=== PATIENT | female | born 1965 | race Caucasian/White ===

== ENCOUNTER → 2020-09-03 10:52 | Outpatient (CLI) | payer OTHER, SELFPAY ==
--- NOTE | ~2020-09-03 | US_ITS ---
EXAMINATION: US pelvic complete w TV DATE: 09/03/2020 11:45 INDICATION: Uterine fibroid Comparison:No prior studies for comparison. TECHNIQUE: Multiple transabdominal and endovaginal sonographic images of the pelvis performed. FINDINGS: The uterus measures 7.6 x 3.8 x 4.7 cm. There are multiple uterine fibroids, largest locate d near the cervix measuring 4.3 x 3 x 4.1 cm The endometrial complex measures 7 mm. The ovaries are not visualized. There is no free fluid in the pelvis. There are no abnormal masses seen on either side. IMPRESSION: 1. Multiple uterine fibroids, largest measuring up to 4.3 cm. Reviewed, dictated and finalized at location A. K CLEANER
== END ==
PROVIDERS: Visit Provider Nurse Practitioner
DX: D25.9 Leiomyoma of uterus, unspecified (principal)
CPT/HCPCS: 76830; 76856

== ENCOUNTER → 2020-10-22 17:48 | Outpatient (CLI) | payer OTHER, SELFPAY ==
--- NOTE | ~2020-10-22 | DEXA_ITS ---
Bone Density Report Name: Winifred Solo Age: 55 Sex: Female Ethnicity: White Date of : 1965 Indication: postmenopausal; screening for osteoporosis; Referring Provider: Emily, Claudia Study: Bone densitometry was performed. Exam Date: October 22, 2020 Accession number: [id number] Bone Density: Region BMD T-score Z-score Classification AP Spine (L1-L4) 1.034 -0.1 1.1 Normal Femoral Neck (Left) 0.706 -1.3 -0.2 Osteopenia Total Hip (Left) 0.856 -0.7 0.1 Normal Femoral Neck (Right) 0.725 -1.1 0.0 Osteopenia Total Hip (Right) 0.866 -0.6 0.1 Normal Total Hip Mean 0.861 -0.7 0.1 Normal World Health Organization criteria for BMD impression classify patients as: Normal (T-score at or above -1.0), Osteopenia (T-score between -1.0 and -2.5), or Osteoporosis (T-score at or below -2.5). 10-year Fracture Risk: FRAX not reported because: Treated for osteoporosis Clinical Information Provided by Patient: Is being treated for osteoporosis Has used the following medications: HRT (i.e. estrogen/hormone therapy), Vitamin D, LEVOTHYROXINE Patient maximum height was 63.5 Menopause Age: 52 Drinks caffeinated beverages Onset of menses at age 13 Number of children 2 Impression: The patient has low bone mass, based on the Left Femoral Neck T-score. Discussion: It is important to ask patients whether they are taking their medications and to encourage continued and appropriate compliance with their osteoporosis therapies to reduce fracture risk. It is also important to review their risk factors and encourage appropriate calcium and vitamin D intakes, exercise, fall prevention and other lifestyle measures. Follow-Up: Consider a repeat BMD and Vertebral Fracture Assessment (VFA) exam in 2 years or sooner if medically necessary, to reassess this patient's status. Reported by: DEBRA on 10/22/2020 6:34:00 PM. Reviewed, dictated and finalized at location AJannet ELE
--- NOTE | ~2020-10-22 | MM_ITS ---
EXAMINATION: MM screening [facility]min BI w ashley HISTORY: Screening mammogram TECHNIQUE: Craniocaudal and mediolateral oblique 3-D tomosynthesis images were obtained and synthetic 2-D images were generated. CAD analysis was submitted and interpreted. COMPARISON: 09/26/2019, 09/06/2018, 08/24/2017 bilateral digital screening mammogram examinations BREAST PARENCHYMAL COMPOSITION: There are scattered areas of fibroglandular density. FINDINGS: There is no evidence of suspicious mass, calcification, or architectural distortion to sugg est malignancy in either breast. There has been no suspicious interval change. IMPRESSION: 1. No mammographic evidence of malignancy. 2. Recommend routine screening mammography in one year. BI-RADS Category 1: Negative Reviewed, dictated and finalized at location A. PROCESSING CLERK
== END ==
PROVIDERS: PCP Internal Medicine; Visit Provider Nurse Practitioner
DX: Z12.31 Encounter for screening mammogram for malignant neoplasm of breast (principal); Z13.820 Encounter for screening for osteoporosis; M85.852 Other specified disorders of bone density and structure, left thigh; M85.851 Other specified disorders of bone density and structure, right thigh
CPT/HCPCS: 77063; 77067; 77080

== ENCOUNTER → 2021-10-24 10:00 | Outpatient (CLI) | payer OTHER, SELFPAY ==
--- NOTE | ~2021-10-24 | MM_ITS ---
EXAMINATION: MM screening [facility] BI w ashley HISTORY: Screening mammogram TECHNIQUE: Craniocaudal and mediolateral oblique 3-D tomosynthesis images were obtained and synthetic 2-D images were generated. CAD analysis was submitted and interpreted. COMPARISON: 10/22/2020, 09/26/2019, 09/06/2018 BREAST PARENCHYMAL COMPOSITION: The breasts are heterogeneously dense, which may obscure small masses . FINDINGS: There is no evidence of suspicious mass, calcification, or architectural distortion to sugg est malignancy in either breast. There has been no suspicious interval change. IMPRESSION: 1. No mammographic evidence of malignancy. 2. Recommend routine screening mammography in one year. BI-RADS Category 1: Negative Reviewed, dictated and finalized at location A. KEEPER
== END ==
PROVIDERS: PCP Internal Medicine; Visit Provider Nurse Practitioner
DX: Z12.31 Encounter for screening mammogram for malignant neoplasm of breast (principal)
CPT/HCPCS: 77063; 77067

== ENCOUNTER → 2022-12-04 10:29 | Outpatient (CLI) | payer OTHER, SELFPAY ==
--- NOTE | ~2022-12-04 | MM_ITS ---
EXAMINATION: MM screening osmin BI w ashley HISTORY: Screening TECHNIQUE: Craniocaudal and mediolateral oblique 3-D tomosynthesis images were obtained and synthetic 2-D images were generated. CAD analysis was submitted and interpreted. COMPARISON: Comparison to multiple prior studies sequentially, with oldest reviewed study dated 07/21. BREAST PARENCHYMAL COMPOSITION: There are scattered areas of fibroglandular density. FINDINGS: There are new asymmetries in the upper outer quadrant of the left breast. The right breast is stable without evidence for malignancy. IMPRESSION: 1. New left breast asymmetries. 2. Additional mammographic views and possible breast ultrasound are recommended. BI-RADS Category 0: Incomplete: Needs additional imaging evaluation. Reviewed, dictated and finalized at location A. STICS CLERK IMPRESSION: 1. New left breast asymmetries. 2. Additional mammographic views and possible breast ultrasound are recommended . BI-RADS Category 0: Incomplete: Needs additional imaging evaluation.
== END ==
PROVIDERS: PCP Internal Medicine; Visit Provider Nurse Practitioner
DX: Z12.31 Encounter for screening mammogram for malignant neoplasm of breast (principal); R92.8 Other abnormal and inconclusive findings on diagnostic imaging of breast
CPT/HCPCS: 77063; 77067

== ENCOUNTER → 2022-12-29 08:45 | Outpatient (CLI) | payer OTHER, SELFPAY ==
--- NOTE | ~2022-12-29 | MM_ITS ---
EXAMINATION: MM diagnostic osmin LT w ashley HISTORY: New mammographic asymmetries reported in the upper outer quadrant of the left breast on Febr 2022 screening mammogram TECHNIQUE: Additional 3-D tomosynthesis images of left breast were performed and synthetic 2-D images were generated. CAD analysis was submitted and interpreted. COMPARISON: December 04, 2022, October 24, 2021, October 22, 2020bilateral screening mammogram exam[place] FINDINGS: The asymmetries reported on the screening mammogram of December 04, 2022 are not reproduced with spot compression. No significant change in appearance since October 22, 2020. IMPRESSION: 1. No mammographic evidence of malignancy 2. Routine annual mammographic screening is recommended BI-RADS Category 1: Negative Reviewed, dictated and finalized at location A. SHER ACCORDION
== END ==
PROVIDERS: PCP Internal Medicine; Visit Provider Nurse Practitioner
DX: R92.8 Other abnormal and inconclusive findings on diagnostic imaging of breast (principal)
CPT/HCPCS: 77061; 77065; G0279

== ENCOUNTER 2023-12-28 13:24 | Outpatient (CLI) | payer OTHER, SELFPAY ==
--- NOTE | ~2023-12-28 | MM_ITS ---
EXAMINATION: MM screening osmin BI w ashley HISTORY: Screening TECHNIQUE: Craniocaudal and mediolateral oblique 3-D tomosynthesis images were obtained and synthetic 2-D images were generated. CAD analysis was submitted and interpreted. COMPARISON: Comparison to multiple prior studies sequentially, with oldest reviewed study dated 03/2018. BREAST PARENCHYMAL COMPOSITION: Dense: The breasts are heterogeneously dense, which may obscure small masses FINDINGS: There is developing asymmetry medially in the left breast on CC view. The right breast is s table without evidence for malignancy. IMPRESSION: 1. Developing left breast asymmetry. 2. Additional mammographic views and possible breast ultrasound are recommended. BI-RADS Category 0: Incomplete: Needs additional imaging evaluation. Reviewed, dictated and finalized at location A. E MANAGER IMPRESSION: 1. Developing left breast asymmetry. 2. Additional mammographic views and possible breast ultrasound are recommended . BI-RADS Category 0: Incomplete: Needs additional imaging evaluation.
== END 2023-12-28 13:25 ==
LOC: MICIMG 13:25
PROVIDERS: PCP Nurse Practitioner; Visit Provider Nurse Practitioner
DX: Z12.31 Encounter for screening mammogram for malignant neoplasm of breast (principal); R92.8 Other abnormal and inconclusive findings on diagnostic imaging of breast
CPT/HCPCS: 77063; 77067

== ENCOUNTER 2024-02-01 08:31 | Outpatient (CLI) | payer OTHER, SELFPAY ==
--- NOTE | ~2024-02-01 | MMUS_ITS ---
EXAMINATION: MM diagnostic osmin LT w ashley, US breast LT limited HISTORY: Follow-up left breast asymmetry TECHNIQUE: Additional 3-D tomosynthesis images of the left breast were performed and synthetic 2-D im ages were generated. CAD analysis was submitted and interpreted. High resolution Limited left breast ultrasound was performed. COMPARISON: Comparison to multiple prior studies sequentially, with oldest reviewed study dated 09/03. BREAST PARENCHYMAL COMPOSITION: Not dense: There are scattered areas of fibroglandular density. FINDINGS: MAMMOGRAPHIC FINDINGS: The area of asymmetry is less apparent with spot compression mediolateral views. No discrete mass or architectural distortion is seen. No suspicious calcifications. ULTRASOUND: Limited left breast ultrasound: At 9:00, 3.5 cm from the nipple there is an oval hypoechoic mass with echogenic hilum measuring 6 mm. There is internal vascularity. No significant posterior features. This likely represents a benign in tramammary lymph node. At 9:00, 3.5 cm from the nipple there is a small cluster of microcysts as well . IMPRESSION: 1. Probable benign left breast masses located at 9:00, 3.5 cm from the nipple. 2. Recommend 6 month follow-up diagnostic left mammogram and left breast ultrasound recommended BI-RADS category 3, probably benign findings. Reviewed, dictated and finalized at location A. IMPRESSION: 1. Probable benign left breast masses located at 9:00, 3.5 cm from the nipple. 2. Recommend 6 month follow-up diagnostic left mammogram and left breast ultras ound recommended BI-RADS category 3, probably benign findings.
== END 2024-02-01 08:32 ==
PROVIDERS: PCP Nurse Practitioner; Visit Provider Obstetrics & Gynecology Gynecology
DX: R92.8 Other abnormal and inconclusive findings on diagnostic imaging of breast (principal)
CPT/HCPCS: 76642; 77061; 77065; G0279

== ENCOUNTER 2024-07-18 09:10 | Outpatient (CLI) | payer OTHER, SELFPAY ==
--- NOTE | ~2024-07-18 | MMUS_ITS ---
EXAMINATION: MM diagnostic osmin LT w ashley, US breast LT limited HISTORY: Six-month follow-up of probably benign left breast lesion TECHNIQUE: 3-D tomosynthesis images of the left breast were performed and synthetic 2-D images were g enerated. CAD analysis was submitted and interpreted. High resolution limited left breast ultrasound was performed. COMPARISON: 02/01/2024, 12/28/2023, 12/04/2022 BREAST PARENCHYMAL COMPOSITION:Not Dense. There are scattered areas of fibroglandular density. FINDINGS: MAMMOGRAPHIC FINDINGS: Parenchymal pattern of left breast is unchanged. No suspicious mass lesion or distortion seen. No shayan picious microcalcification. ULTRASOUND: At the 9:00 position left breast, 3.5 cm from the nipple, there is a stable 5 mm small intramammary l ymph node or other white until a benign-appearing lesion. Probable tiny nearby cyst is also unchanged . IMPRESSION: Subcentimeter benign lesions at the 9:00 position left breast sonographically, as noted above. No mammographic evidence for malignancy. Return to annual screening mammography recommended. BI-RADS Category 2: Benign finding(s). Reviewed, dictated and finalized at location M. IMPRESSION: Subcentimeter benign lesions at the 9:00 position left breast sonographically, as noted above. No mammographic evidence for malignancy. Return to annual screening mammography recommended. BI-RADS Category 2: Benign finding(s).
== END 2024-07-18 09:11 | disposition home or self-care (01) ==
LOC: MICIMG 09:11
PROVIDERS: PCP Obstetrics & Gynecology Gynecology; Visit Provider Obstetrics & Gynecology Gynecology
DX: R92.8 Other abnormal and inconclusive findings on diagnostic imaging of breast (principal)
CPT/HCPCS: 76642; 77061; 77065; G0279

== ENCOUNTER 2024-12-29 12:38 | Outpatient (CLI) | payer OTHER, SELFPAY | END 2024-12-29 12:39 | disposition home or self-care (01) | LOC: CHSIMG 12:41 | PROVIDERS: PCP Obstetrics & Gynecology Gynecology; Visit Provider Nurse Practitioner | DX: Z12.31 Encounter for screening mammogram for malignant neoplasm of breast (principal); Z78.0 Asymptomatic menopausal state; M85.88 Other specified disorders of bone density and structure, other site | CPT/HCPCS: 77063; 77067; 77080 ==